=== PATIENT | female | born 1955 | race Caucasian/White ===

== ENCOUNTER 2018-01-03 05:43 | Observation (INO) | payer OTHER ==
[2018-01-03] MEDS: LR 1,000 ML IV ×2 (06:23→11:45)
[2018-01-03] MEDS: CelecoXIB 400 MG CAP PO (06:39)
[2018-01-03] MEDS: PERCOCET 5MG/325MG TAB PO ×4 (06:40→19:51)
[2018-01-03] MEDS: GABAPENTIN 300 MG CAP PO (06:40)
[2018-01-03] MEDS ORDERED: ROCURONIUM BROMIDE 50 MG/5 ML VIAL As Ordered (07:09)
[2018-01-03] MEDS ORDERED: PROPOFOL 200 MG/20 ML VIAL As Ordered (07:09)
[2018-01-03] MEDS ORDERED: LIDOCAINE 2% INJ 100 MG/5 ML SDV (FOR ANES.) As Ordered (07:09)
[2018-01-03] MEDS ORDERED: fentaNYL 250 MCG/5 ML INJECTION (J3010) As Ordered (07:09)
[2018-01-03] MEDS ORDERED: MIDAZOLAM INJ 2 MG/2 ML VIAL (J2250) As Ordered (07:10)
[2018-01-03] MEDS ORDERED: GLYCOPYRROLATE INJ 0.2 MG/ML 2 ML VIAL As Ordered ×2 (07:54→08:38)
[2018-01-03] MEDS: ceFAZolin 2 GM/D5W 50 ML IV BAG (J0690 PER 500MG) As Ordered (08:23)
[2018-01-03] MEDS ORDERED: ePHEDrine SULFATE 25 MG/5 ML(5MG/ML) SYRINGE As Ordered ×2 (08:26)
[2018-01-03] MEDS ORDERED: PHENYLephrine HCL 500 MCG/5 ML (100MCG/ML) SYRINGE (J2370) As Ordered ×2 (08:26→08:30)
[2018-01-03] MEDS: BUPIVACAINE/EPIN 0.5% 30 ML VIAL As Ordered (08:34)
[2018-01-03] MEDS: BACITRACIN PWD 50,000 UNITS VIAL As Ordered (08:35)
[2018-01-03] MEDS: THROMBIN SOLN 20,000 UNITS KIT As Ordered (08:36)
[2018-01-03] MEDS ORDERED: HYDROmorphone HCL 2 MG/ML 1ML VIAL (J1170) As Ordered (08:38)
[2018-01-03] MEDS ORDERED: NEOSTIGMINE 10 MG/10 ML VIAL (J2710) As Ordered ×2 (08:38→08:43)
[2018-01-03] MEDS ORDERED: ONDANSETRON 4MG/2ML VIAL (J2405) As Ordered (08:38)
[2018-01-03] MEDS ORDERED: METOCLOPRAMIDE INJ 10MG/2ML VIAL (J2765) As Ordered (08:39)
[2018-01-03] MEDS ORDERED: PHENYLEPHRINE INJ 10MG/ML VIAL (J2370) As Ordered ×2 (09:02→09:07)
[2018-01-03] MEDS ORDERED: VASOPRESSIN INJ 20 UNITS/ML VIAL As Ordered (09:08)
[2018-01-03] MEDS: BUPIVACAINE LIPOSOME/PF 1.3% 20 ML VIAL (13.3MG/ML)(EXPAREL) As Ordered (10:30)
[2018-01-03] MEDS: BUPIVACAINE HCL 0.25% 10 ML VIAL As Ordered (10:30)
[2018-01-03] MEDS ORDERED: PERCOCET 5MG/325MG TAB PO (11:30)
[2018-01-03] MEDS ORDERED: LORazepam 1 MG TAB PO (11:30)
[2018-01-03] MEDS ORDERED: fentaNYL 100 MCG/2 ML INJECTION (J3010) IV (11:45)
[2018-01-03] MEDS ORDERED: ONDANSETRON 4MG/2ML VIAL (J2405) IV (11:45)
[2018-01-03] MEDS ORDERED: HYDROMORPHONE HCL 0.5 MG/ 0.5 ML SYRINGE (J1170 PER 1) IV ×2 (11:45)
[2018-01-03] MEDS ORDERED: HYDROmorphone HCL 1 MG/ML SYRINGE (J1170) IV (11:45)
[2018-01-03] MEDS ORDERED: MEPERIDINE INJ 25 MG/ML VIAL (J2175) IV (11:45)
[2018-01-03] MEDS ORDERED: METOCLOPRAMIDE INJ 10MG/2ML VIAL (J2765) IV (11:45)
[2018-01-03] MEDS: VENLAFAXINE **XR** 37.5 MG CAPSULE PO (14:41)
[2018-01-03] MEDS: D5W/LR 1,000 ML IV ×2 (14:41→21:30)
[2018-01-03] MEDS: HYDROmorphone HCL 1 MG/ML SYRINGE (J1170) IV (15:38)
[2018-01-03] MEDS: PROMETHAZINE INJ 25 MG/ML VIAL (J2550) IV ×2 (16:57→19:51)
[2018-01-03] MEDS: PANTOPRAZOLE 40MG TAB (PROTONIX) PO (20:57)
[2018-01-03] MEDS: AMITRIPTYLINE 50 MG TAB PO (20:57)
[2018-01-03] MEDS: diphenhydrAMINE 25 MG CAP PO (22:22)
[2018-01-04] MEDS: PERCOCET 5MG/325MG TAB PO ×4 (01:14→20:34)
[2018-01-04] MEDS: PROMETHAZINE INJ 25 MG/ML VIAL (J2550) IV (04:44)
[2018-01-04] MEDS: diphenhydrAMINE 25 MG CAP PO (05:17)
[2018-01-04] MEDS: CelecoXIB (CeleBREX) 100 MG CAP PO (08:09)
[2018-01-04] MEDS: PANTOPRAZOLE 40MG TAB (PROTONIX) PO ×2 (08:09→20:34)
[2018-01-04] MEDS: VENLAFAXINE **XR** 37.5 MG CAPSULE PO (08:09)
[2018-01-04] MEDS: ATENOLOL 25 MG TAB PO (08:09)
[2018-01-04] MEDS: MECLIZINE 12.5 MG TAB PO ×2 (09:45→20:34)
[2018-01-04] MEDS: AMITRIPTYLINE 50 MG TAB PO (20:34)
[2018-01-05] MEDS: PERCOCET 5MG/325MG TAB PO ×2 (03:17→09:47)
[2018-01-05] MEDS: PROMETHAZINE INJ 25 MG/ML VIAL (J2550) IV (04:15)
[2018-01-05] MEDS: MECLIZINE 12.5 MG TAB PO (08:29)
[2018-01-05] MEDS: ATENOLOL 25 MG TAB PO (08:29)
[2018-01-05] MEDS: VENLAFAXINE **XR** 37.5 MG CAPSULE PO (08:29)
[2018-01-05] MEDS: PANTOPRAZOLE 40MG TAB (PROTONIX) PO (08:29)
== END 2018-01-05 09:58 | disposition home or self-care (01) ==
LOC: M SDC 05:43 → M MS5PR 12:40 → M SDC 12:40 → M MS5PR 05:43
DX: M48.061 Spinal stenosis, lumbar region without neurogenic claudication (principal); M51.16 Intervertebral disc disorders with radiculopathy, lumbar region; Z88.1 Allergy status to other antibiotic agents; Z88.8 Allergy status to other drugs, medicaments and biological substances; Z79.899 Other long term (current) drug therapy; E03.9 Hypothyroidism, unspecified
CPT/HCPCS: 63030

== ENCOUNTER 2019-07-17 07:10 | Outpatient (CLI) | payer OTHER ==
[~2019-07-17] VITALS: Ht 170.2 cm; Wt 77.4 kg
[~2019-07-17 07:10] MED LIST: AMIT25TA PO; ATEN25TA PO; ESOM1CAP5 PO; HYDR-3713 PO; LEVO112T2 PO; LINZ290C PO; VENL37.52 PO
[2019-07-17 07:15] VITALS: BP 139/78
[2019-07-17 08:00] VITALS: BP 135/66
[2019-07-17] MEDS ORDERED: COSYNTROPIN 0.25 MG/ML VIAL (J0834 PER 0.25MG) IV ONE (08:00)
[2019-07-17 08:40] VITALS: BP 141/67
[2019-07-17 09:15] VITALS: BP 142/65
== END 2019-07-17 09:15 | disposition home or self-care (01) ==
LOC: M INFU 07:10
PROVIDERS: ATTEND Internal Medicine Endocrinology, Diabetes & Metabolism
DX: E27.8 Other specified disorders of adrenal gland (principal)
CPT/HCPCS: 82533; 96374; J0834

== ENCOUNTER → 2020-08-07 | Outpatient (REF) | payer MEDICARE, BC, OTHER | LOC: M LAB REF 13:59 | PROVIDERS: ATTEND Ophthalmology | DX: H02.834 Dermatochalasis of left upper eyelid (principal); H02.831 Dermatochalasis of right upper eyelid ==